=== PATIENT | male | born 1975 | race Caucasian/White ===

== ENCOUNTER 2022-09-15 09:28 | Emergency (ER) | payer OTHER, SELFPAY ==
[2022-09-15 09:47] VITALS: BP 153/98; PULSE 80; RESP 16; TEMP 36.3; O2SAT 99
--- NOTE | 2022-09-15 10:24 | ED.URI ---
HPI - URI/Sore Throat General Chief Complaint: Upper Respiratory Infection Stated Complaint: cold sx Time Seen by Provider: 09/15/22 10:24 Source: patient and RN notes reviewed Mode of arrival: ambulatory Limitations: no limitations History of Present Illness HPI Narrative: 47-year-old male presented for complaint of sore throat, sinus congestion and drainage for the hoarse voice over the last 8 days. He denies shortness of breath, wheezing, nausea, vomiting, diarrhea, fevers or chills. He has taken negative COVID test. He is taking [id number] medication without relief. Endorses sick contacts at the onset of symptoms. MD elicited complaint: cough Related Data Home Medications Medication Instructions Recorded Confirmed anastrozole 1 mg tablet mg 09/15/22 benazepril 40 mg tablet mg 09/15/22 hydrocortisone acetate 25 mg mg RECTAL 09/15/22 rectal suppository ketoconazole 2 % shampoo topical 09/15/22 ketoconazole 2 % topical cream applic topical 09/15/22 syringe with needle, safety 3 mL 09/15/22 09/15/22 gauge x 1 (BD Integra Syringe) tadalafil 10 mg tablet mg 09/15/22 Allergies Allergy/AdvReac Type Severity Reaction Status Date / Time acetaminophen [From Tylenol] Allergy Gastrointestinal Verified 09/15/22 10:13 Upset Review of Systems Review of Systems: CONSTITUTIONAL: Denies malaise, chills, sweats, fever EYES: Denies visual changes, redness, or discharge ENT: Reports rhinorrhea, congestion, sore throat CARDIOVASCULAR: Denies chest pain, palpitations, edema RESPIRATORY: Reports cough, post nasal drainage. Denies dyspnea GASTROINTESTINAL: Denies abdominal pain, nausea, vomiting, diarrhea SKIN: Denies rash or itching MUSCULOSKELETAL: Denies myalgia [facility] Past Medical History Medical History (Updated 09/15/22 @ 10:35 by Kristen Muller, SAMUEL) No pertinent past medical history Exam Narrative: GENERAL: well-appearing EYES: conjunctivae clear ENT: Mucous membranes moist. TM pearly brown with dull light reflex bilaterally; no tragal tenderness. Oropharynx erythematous without lesions or exudate, no drooling, no hoarseness, no trismus, uvula midline. CHEST: Clear to auscultation, breath sounds equal. No wheezing, rhonchi, rales, or stridor. No respiratory distress, speaks in full sentences. HEART: Regular rate and rhythm. No murmur heard. SKIN: Warm, dry, no rash. NEURO: Alert and oriented x3. PSYCH: Normal mood and affect Course Course Emergency Course: Patient is aware of diagnosis, understands and agrees to treatment plan. Anticipatory guidance given. Patient agrees to follow-up as directed and is aware of reasons to seek care at the emergency department. Portions of this record may have been created with voice recognition software Level of Care: Express Care Visit Vital Signs Vital signs: Vital Signs Temperature 97.4 F L 09/15/22 09:47 Pulse Rate 80 09/15/22 09:47 Respiratory Rate 16 09/15/22 09:47 Blood Pressure 153/98 H 09/15/22 09:47 Pulse Oximetry 99 09/15/22 09:47 Oxygen Delivery Room Air 09/15/22 09:47 Temperature 97.4 F L 09/15/22 09:47 Pulse Rate 80 09/15/22 09:47 Respiratory Rate 16 09/15/22 09:47 Blood Pressure 153/98 H 09/15/22 09:47 Pulse Oximetry 99 09/15/22 09:47 Oxygen Delivery Room Air 09/15/22 09:47 reviewed MDM - URI/Sore Throat MDM Narrative Medical decision making narrative: Advised supportive measures and signs/symptoms to go to the ER. Pt is appropriate for outpt treatment and f/u. Differential Diagnosis Differential diagnosis: Likely upper respiratory infection, sinusitis and viral infection Lab Data Labs: Strep Screen Presumptive Negative *(Reference Range: Negative)* Discharge Plan Discharge Clinical Impression: Upper respiratory infection Patient Disposition: Home, Self-Care Condition: Stable Instructions: Antib
== END 2022-09-15 10:40 | disposition home or self-care (01) ==
PROVIDERS: Emergency Provider Nurse Practitioner Family; PCP Family Medicine
DX: J06.9 Acute upper respiratory infection, unspecified (principal)
CPT/HCPCS: 87081; 87880; 99203; G0463